=== PATIENT | female | born 1970 | race Caucasian/White ===

== ENCOUNTER 2024-01-04 14:16 | Outpatient (REF) | payer OTHER, SELFPAY | END 2024-01-04 14:17 | disposition home or self-care (01) | LOC: HO.SH 14:16 | PROVIDERS: Visit Provider Physician Assistant | DX: Z01.118 Encounter for examination of ears and hearing with other abnormal findings (principal); H90.41 Sensorineural hearing loss, unilateral, right ear, with unrestricted hearing on the contralateral side | CPT/HCPCS: 92557; 92567; 92588 ==

== ENCOUNTER 2024-02-28 15:13 | Outpatient (REF) | payer SELFPAY ==
--- OUTSIDE RECORDS SUMMARY | 2024-02-28 18:22 | XMS_ITS | Continuity of Care Document ---
Author Organization [place] - [facility], ENTS 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 I have recommended a MRI to evaluate for retrocochlear mass. We did discuss that fitting a hearing aid may be difficult on that side given poor word rec. All questions answered. [email or web address] Not available 01/24/2024 07:39:58 Plan of Treatment Reminders Order Date Submit Date Provider Last Modified By Organization Details Last Modified Time Details Appointments None recorded. Lab None recorded. Referral None recorded. Procedures None recorded. Surgeries None recorded. Imaging MRI, brain + internal auditory canal, w/wo contrast - had Saleem's palsy on the right several months ago, then sudden hearing loss about 2 months ago 2023 024 trav [facility] ([facility]), [address] [facility] [address], [place], [address], 4 11:54:21 Medication Orders None recorded. Patient TargetsNo targets recorded. Patient InstructionsNo instructions recorded. Reason for Referral None Reported. Results Created Date Observation Date Name Description Value Unit Range Abnormal Flag Note LastModifiedBy Organization Detail LastModifiedTime 01/20/20 24 01/04/2024 audio gram No observ ation record ed. [email or web address] [facility] [address] [facility], [place], [address], 01/21/2024 08:13:25 01/28/20 24 01/04/2024 audio gram No observ ation record ed. [email or web address] Not Available 01/09 09:32:51 02/08/20 24 02/07/2024 MRI, brain + brain stem, w/wo contr ast [facility] field Access ion Number : [id number] Patien t Name: Nayeli Henderson Record Number : [id number] Date of : 1970 Date of Exam: 2023 Referr ing Physic katrina: Steven Carcamo ENT Surgeo [facility] [address] [place] [address] Exam: MR Brain (C-/C+ ) CPT 33376 Room Descri ption: [place] GE Pion 3T HISTOR Y: Right- sided hearin g loss and tinnit us. TECHNI QUE: Multip lanar, multis equenc e MRI of the chemist internship al audito ry canals was perfor med before and after the uneven tful admini strati on of 20 mL Dotare m intrav enous contra st. COMPAR NOVA: None. FINDIN GS: There is no mass or abnorm al enhanc ement in either IAC or CP angle cister n. The membra nous labyri nth struct ures are symmet janie and normal . Brains tem and cerebe llum are unrema rkable . Visual ized suprat entori al brain is grossl y unrema rkable . Flow voids are preser ariel in the visual ized [place] . Polypo id mucosa l thicke george is seen in the maxill kishore sinuse s, and there is also partia l opacif icatio n of the anteri or ethmoi d air cells on both sides. Mastoi ds are clear. Visual ized orbits are grossl y unrema rkable . IMPRES ARIAS: 1. No eviden ce of retroc ochlea r lesion . Electr onical ly Signed By: Kw[facility]Siria [facility] [address] [facility], [place], [address], 02/11/2024 13:10:07 Result Notes None recorded. Problems Name Problem SNOMED Code Status Onset Date Resolution Date Notes Provider Name and Address Organization Details Recorded Time Tinnitus of right ear 8408763793666 Active 2020 Tinnit us, right ear; Note: Date Diagno sed: 05/10/19 21 3:26 PM (H93.1 1) Not Available [facility] 4 03:31:42 Sensorineu ral hearing loss of bilateral ears 898967648 Active 2023 STEVEN EDMONDS MD [address] [place] [address],[place] [address], [place], [address] , [facility] - [facility] 4 14:44:58 Sensorineu ral hearing loss in right ear 0859904388133 0 Active 2023 STEVEN EDMONDS MD [address] [place] [address],[place] [address], [place], [address] , [facility] - [facility] [place] 4 14:46:32 Problem Notes None recorded. Procedures Surgical History Date Name Laterality Status Provider Name and Address Organization Details Recorded Time section completed STEVEN EDMONDS MD [address] [place] [address],[place] [address], [place], [address], [facility] - [facility] 01/24/2024 07:40:19 Imaging Results None recorded. Procedure Notes None recorded. Medical Equipment None Reported. Allergies No known drug allergies Medications Name Sig Start Date Stop Date Status Note LastModified by Organization Details LastModified Time valacyclo vir 1 gram tablet TAKE ONE TABLET BY MOUTH EVERY 8 HOURS FOR 7 DAYS 01/19 completed Not Available Not Available Not Available prednison e 20 mg tablet TAKE THREE TABLETS BY MOUTH DAILY FOR 7 DAYS,ANGEL E TWO TABLETS DAILY DAYS 8-10,ANGEL E ONE TABLET DAILY DAYS 11-14 01/19 completed Not Available Not Available Not Available amlodipin e 5 mg tablet 01/19 completed Medicati on ID: [id number] B rand Name: amlodipi ne Send Method: E-Prescr ibed Sub s Allowed: subs OK Medic ationGen ericName : amlodipi ne Not Available Not Available Not Available amoxicill in 500 mg tablet TAKE TWO TABLETS BY MOUTH RIGHT AWAY THEN TAKE ONE TABLET EVERY 8 HOURS UNTIL FINISHED 01/19 completed Not Available Not Available Not Available lorazepam 1 mg tablet Take 1 tablet by oral route for 1 day. active Not Available Not Available No t Available lisinopri l 10 mg-hydroc hlorothia zide 12.5 mg tablet TAKE ONE TABLET BY MOUTH EVERY DAY 01/19 completed Not Available Not Available Not Available methylpre dnisolone 4 mg tablets in a dose pack TAKE SIX TABLETS FOR 1 DAY, THEN FIVE TABLETS FOR 1 DAY, THEN FOUR TABLETS FOR 1 DAY,THEN THREE TABLETS FOR 1 DAY, THEN TWO TABLETS FOR 1 DA 01/19 completed Not Available Not Available Not Available benazepri l 10 mg tablet 01/19 completed Medicati on ID: [id number] B rand Name: benazepr il Send Method: E-Prescr ibed Sub s Allowed: subs OK Medic ationGen ericName : benazepr il Not Available Not Available Not Available Vitals Date Recorded Body height Body mass index (BMI) Body weight Provider Name and Address Organization Details Last Updated DateTime 01/20/2024 167.64 cm 24.2 kg/m2 36761.86 g Elisa Torres [place] - [facility] 01/20/2024 14:21:31 Social History None recorded. Functional Status None recorded. Mental Status None recorded. Family History Nothing Reported. Medical History No medical history recorded. Gynecological HistoryNo gynecological history recorded. Obstetrics History GPAL:G 0 P 0 0 0 0 Past Encounters Encounter ID Performer Location Encounter Start Date Encounter Closed Date Diagnosis/Indication Diagnosis SNOMED-CT Code Diagnosis ICD10 Code Diagnosis Note [id number] STEVEN EDMONDS MD [facility] of [facility] on [address] [place] [address] 01/20/2024 14:12:14 01/20/2024 14:55:18 Sensorineural hearing loss in right ear 7300745167 9100 H90.41 Health Concerns Section Related Observation LastModified by Organization Detai ls LastModified Time None Recorded Concern Status LastModified by Organization Details LastModified Time None Recorded Payers Encounter Date Sequence Insurance Name Policy Number Policy Tomlinson Covered Member ID Tomlinson Member ID Guarantor Name 01/20/2024 1 [facility] (POS II) [id number] Rinku Reagan [id number] Nayeli A Tez Notes Date Note Type Note Provider Name and Address Organization Details Recorded Time 01/20/2024 text/html 53 yo F with hearing loss and tinnitus. Notes always white noise, less pronounced since onset.Gets other sounds, can be high pitched or crinkling.Outside sound makes louder. Had Saleem's on the right over the summer, treated with valacyclovir and prednisone. Symptoms for 8 weeks. No HL then. No reported pain or blisters. Has had some dizziness described as woozines or imbalance. STEVEN EDMONDS MD [address] [place] [address], [address], [facility] - [facility] 01/24/2024 07:41:07 OBGyn Episode No OBEpisode recorded.
--- OUTSIDE RECORDS SUMMARY | 2024-02-28 18:22 | XMS_ITS | Data Portability ---
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 I [...] about 2 months ago 2023 024 trav [facility] ([place] [facility]), [address] [facility], [place], [address], 4 11:54:21 Medication Orders None recorded. Patient TargetsNo targets recorded. Patient InstructionsNo instructions recorded. Reason for Referral None Reported. Results Created Date Observation Date Name Description Value Unit Range Abnormal Flag Note LastModifiedBy Organization Detail LastModifiedTime 01/20/20 24 01/04/2024 audio gram No observ ation record ed. [email or web address] [facility] [address] [facility], [place], [address], 01/21/2024 08:13:25 01/28/20 24 01/04/2024 audio gram No observ ation record ed. [email or web address] Not Available 01/09 09:32:51 02/08/20 24 02/07/2024 MRI, brain + brain stem, w/wo contr [facility] [place] [facility] Access ion Number : [id number] Patien t Name: Kika ansari, Nayeli aguilar Record Number : [id number] Date of : 1970 Date of Exam: 2023 Referr ing Physic katrina: Steven Carcamo ENT Sur[facility] ns of [facility] [address] [place] [address] Exam: MR Brain (C-/C+ ) CPT 24790 Room Descri ption: [place] GE Pion 3T HISTOR Y: Right- sided hearin g loss and tinnit us. TECHNI QUE: Multip lanar, multis equenc e MRI of the dental intern al audito ry canals was perfor med [...] are preser ariel in the visual ized [place] . Polypo id mucosa l [...] lesion . Electr onical ly Signed By: Elenita abramsBryan [facility] ([place] [facility]) [address] [place], [address], 02/11/2024 13:10:07 Result Notes None recorded. Problems Name Problem SNOMED Code Status Onset Date Resolution Date Notes Provider Name and Address Organization Details Recorded Time Tinnitus of right ear 6932014163809 Active 2020 Tinnit us, right ear; Note: Date Diagno sed: 05/10/19 21 3:26 PM (H93.1 1) Not Available [facility] 4 03:31:42 Sensorineu ral hearing loss of bilateral ears 774554320 Active 2023 STEVEN EDMONDS MD [address] [place] [address],[place] [address], [facility] [place], [address] , [facility] - [facility] [place] 4 14:44:58 Sensorineu ral hearing loss in right ear 7267245782277 0 Active 2023 STEVEN EDMONDS MD [address] [place] [address], [place], [address] , [place] - [facility] [place] 4 14:46:32 Problem Notes None recorded. Procedures Surgical History Date Name Laterality Status Provider Name and Address Organization Details Recorded Time section completed STEVEN EDMONDS MD [address] [place] [address],[place] [address], [place], [address], [facility] - [facility] 01/24/2024 07:40:19 Imaging Results Imaging Date Name Status LastModified by Organiz ation Details LastModified Time 01/04/2024 audiogram completed [email or web address] [place] [address] [facility] [address] [place] [address], [place], [address], 01/21/2024 08:13:25 01/04/2024 audiogram completed [email or web address] Information n ot available 01/28/2024 09:32:51 02/07/2024 MRI, brain + brain stem, w/wo contrast active [email or web address] [facility]) [address] [place], [address], 02/11/2024 13:10:07 Procedure Notes None recorded. Medical Equipment None [...] 7 DAYS,ANGEL E TWO TABLETS DAILY DAYS 8-,ANGEL E ONE TABLET DAILY DAYS 11-14 01/19 completed Not Available Not Available Not Available amlodipin e 5 mg tablet 01/19 completed Medicati on ID: [id number] B rand Name: amlodipi ne Send Method: [...] mg tablet 01/19 completed Medicati on ID: [id number] B rand Name: benazepr il Send Method: E-Prescr ibed Sub s Allowed: subs OK Medic ationGen ericName : benazepr il Not Available Not Available Not Available Vitals Date Recorded Body height Body mass index (BMI) Body weight Provider Name and Address Organization Details Last Updated DateTime 01/20/2024 167.64 cm 24.2 kg/m2 86647.86 g Elisa Torres [place] - [facility] 01/20/2024 14:21:31 Social History None recorded. Functional Status None recorded. Mental Status None recorded. Family History Nothing Reported. Medical History No medical history recorded. Gynecological HistoryNo gynecological history recorded. Obstetrics History GPAL:G 0 P 0 0 0 0 Past Encounters Encounter ID Performer Location Encounter Start Date Encounter Closed Date Diagnosis/Indication Diagnosis SNOMED-CT Code Diagnosis ICD10 Code Diagnosis Note [id number] STEVEN EDMONDS MD [facility] on [address] [place] [address] 01/20/2024 14:12:14 01/20/2024 14:55:18 Sensorineural hearing loss in right ear 3961603351 9100 H90.41 Health Concerns Section Related Observation LastModified by Organization Detai ls LastModified Time None Recorded Concern Status LastModified by Organization Details LastModified Time None Recorded Advance Directives Directive None Recorded Payers Encounter Date Sequence Insurance Name Policy Number Policy Tomlinson Covered Member ID Tomlinson Member ID Guarantor Name 01/20/2024 1 [facility] (POS II) [id number] Rinku Reagan [id number] Nayeli Reagan Notes Date Note Type Note Provider Name [...] as woozines or imbalance. STEVEN EDMONDS MD [address] [place] [address], [place], [address], [facility] - [facility] 01/24/2024 07:41:07 OBGyn Episode No OBEpisode recorded.
--- NOTE | 2024-02-29 08:19 | MHC.AU.HA3 ---
Hearing Aid Consultation Date of Visit: 02/28/24 Right Ear: Make, Model, Color, Serial Number: Phonak CROS P DEMO Fountain Manager/Slim Tube: 1C Earmold/Dome/CShell/SlimTip:sm open Left Ear: Make, Model, Color, Serial Number: Phonak Audeo P 13 T 30 DEMO Fountain Manager/Slim Tube: 1S Earmold/Dome/CShell/SlimTip: sm open Follow-Up Summary: Nayeli reports that she went to ENT and no cause or treatment was suggested for sudden hearing loss Ad. Dr. Vazquez recommended a CROS. Discussed CROS system, benefits and limitations, costs. Recommended trial with loaners. Set up with Audeo P 13 T and CROS to test out. Best fit then reduced the small amount of gain that the software was recommending for highs in the left ear to 0 as Nayeli could not tolerate it. Reviewed use and precautions, batteries. Practiced insertion and removal. Encourage to get into a variety of listening situations to experience the CROS during this demo period. Recommendations: Recommendations: Return in 2-3 weeks. Diagnosis Code(s): Primary Diagnosis: H90.41 SNHL Unilateral Right Ear, W/Unrestricted Contralateral Hearing Signature: Provider: Roosevelt Monson, [facility]
== END 2024-02-28 15:14 | disposition home or self-care (01) ==
LOC: HO.HAP 15:13
PROVIDERS: Visit Provider Otolaryngology
DX: Z13.89 Encounter for screening for other disorder (principal)

== ENCOUNTER 2024-03-20 14:00 | Outpatient (REF) | payer SELFPAY ==
--- NOTE | 2024-03-20 14:48 | MHC.AU.HA3 ---
Hearing Instrument Follow-Up- Binaural Date of Visit: 03/20/24 Right Ear: Make, Model, Color, Serial Number: Phonak CROS P DEMO Catcher Plug/Slim Tube: 1C Earmold/Dome/CShell/SlimTip:sm open Left Ear: Make, Model, Color, Serial Number: Maria Ines Audeo P 13 T 30 demo Catcher Plug/Slim Tube: 1S Earmold/Dome/CShell/SlimTip: sm open Follow-Up Summary: Returned PEÑA+ CROS demos. Reports that she wore them a little bit and didn't find them helpful. Reports that she didn't feel very motivated to wear them regularly. Reports feeling glad to have had the opportunity to test them out and realize that she isn't ready to commit to wearing devices at this time. Briefly discussed possibility of trying hearing aid on the right ear in the future instead of CROS. While WRS is poor in the right there could be some benefit from amplification, especially for tinnitus perception. Recommended re-eval to monitor hearing in December unless other recommendation has been made by ENT. Recommendations: Hearing evaluation in December. Diagnosis Code(s): Primary Diagnosis: H90.41 SNHL Unilateral Right Ear, W/Unrestricted Contralateral Hearing Signature: Provider: Roosevelt Monson, [facility]3]-A
--- OUTSIDE RECORDS SUMMARY | 2024-03-20 15:08 | XMS_ITS | Clinical Summary ---
Author Organization [facility] Address [address] [place] [address] Care Team Providers Care Telecommunications Field Engineer Name Role Phone Unavailable Primary Care Provider Unavailabl e Allergies No known active allergies Medications * This document contains information received from the source organization and may not represent a complete record from that organization. No known medications Social History Tobacco Use Types Packs/Day Years Used Date Smoking Tobacco: Never Assessed Comments Unknown Sex and Gender Information Value Date Recorded Sex Assigned at Not on file Legal Sex Female 10:40 AM EST Gender Identity Not on file Sexual Orientation Not on file Last Filed Vital Signs Vital Sign Reading Time Taken Comments Blood Pressure 132/76 03/10/2017 3:40 PM EST Pulse 64 03/10/2017 3:40 PM EST Temperature - - Respiratory Rate - - Oxygen Saturation - - Inhaled Oxygen Concentration - - Weight 77.1 kg (170 lb) 03/10/2017 3:40 PM EST Height 167.6 cm (5' 6 ) 03/10/2017 3:40 PM EST Body Mass Index 27.44 03/10/2017 3:40 PM EST Plan of Treatment Health Maintenance Due Date Last Done Comments Hepatitis C Screening 1970 Pap Smear 1984 DTaP/Tdap/Td (1 - Tdap) 02/22/1986 Hep B (1 of 3 - 19+ 3-dose series) 02/22/1987 Mammogram/Breast Imaging 2008 Pneumococcal 50+ years (1 of 1 - PCV) 02/22/2018 Zoster (Shingrix) (1 of 2) 02/22/2018 COVID-19 Vaccine ( - 2023-2 5 season) 2023 Influenza (#1) 2023 HPV Vaccine Aged Out No longer eligi ble based on patient's age to complete this topic Hep A Aged Out No longer eligi ble based on patient's age to complete this topic Hib Aged Out No longer eligi ble based on patient's age to complete this topic Meningococcal ACWY Aged Out No longer eligible based on patient's age to complete this topic
== END 2024-03-20 14:01 | disposition home or self-care (01) ==
LOC: HO.HAP 14:00
PROVIDERS: PCP Physician Assistant; Visit Provider Otolaryngology
DX: Z13.89 Encounter for screening for other disorder (principal)